=== PATIENT | male | born 1955 | race Caucasian/White ===

== ENCOUNTER → 2017-01-04 | Outpatient (CLI) | payer OTHER ==
[~2017-01-04] MED LIST: AMLO5TAB22 PO; ASPI325T PO; ATOR10TA PO; ATOR10TA15 PO; CLAR10TA13 PO; CLAR2.5T PO; DICL1CAP4 PO; LOSA50TA PO; OMEP20TA PO; OMEP20TA39 PO; [UNRECOGNIZED DRUG - OTHER] IM
== END ==
LOC: CLAB 09:07
PROVIDERS: ATTEND Specialist
DX: B18.2 Chronic viral hepatitis C (principal)
CPT/HCPCS: 36415; 82140

== ENCOUNTER 2017-01-22 09:49 | Day surgery (SDC) | payer OTHER ==
[~2017-01-22] VITALS: Ht 190.5 cm; Wt 140.9 kg
[~2017-01-22 09:49] MED LIST changes: -[UNRECOGNIZED DRUG - OTHER] IM
[2017-01-22 10:16] VITALS: BP 198/87; PULSE 85; RESP 20; TEMP 98.1; O2SAT 98
[2017-01-22] MEDS ORDERED: ATOR10TA15 PO (10:17)
[2017-01-22] MEDS ORDERED: LOSA50TA PO (10:17)
[2017-01-22] MEDS ORDERED: ASPI325T PO (10:17)
[2017-01-22] MEDS ORDERED: SODIUM CHLOR 0.9% 1000 ML IV SCH (10:30)
[2017-01-22 10:56] LABS: AUTOMATED NEUTROPHIL # 7.9 TH/MM3 (1.8-7.7); BASOPHIL % 0.3 % (0.0-2.0); EOSINOPHIL # 0.3 TH/MM3 (0-0.4); EOSINOPHIL % 2.8 % (0.0-4.0); HEMATOCRIT 38.7 % (39.0-51.0); HEMO FLAGS AUTO DIFF; LYMPH % 14.2 % (9.0-44.0); LYMPHOCYTE # 1.5 TH/MM3 (1.0-4.8); MEAN CELL VOLUME 64.4 FL (80.0-100.0); MEAN CORPUSCULAR HEMOGLOBIN 19.6 PG (27.0-34.0); MEAN CORPUSCULAR HGB CONC 30.4 % (32.0-36.0); MONO % 7.3 % (0.0-8.0); NEUT % 75.4 % (16.0-70.0); PLATELET COUNT 268 TH/MM3 (150-450); RED CELL DISTRIBUTION WIDTH 19.7 % (11.6-17.2); WHITE BLOOD COUNT 10.5 TH/MM3 (4.0-11.0)
[2017-01-22 11:01] LABS: APTT (PATIENT) 29.1 SEC (24.3-30.1)
[2017-01-22] MEDS ORDERED: LIDOCAINE 1%/EPINEPHrine 1:100,000 SOLN 20 ML VIAL ONE (11:29)
[2017-01-22 11:31] LABS: SCAN/DIFF AUTO DIFF CONFIRMED
[2017-01-22] MEDS ORDERED: MIDAZOLAM HCL 5 MG/5 ML VIAL ONE (11:31)
[2017-01-22] MEDS ORDERED: fentaNYL CITRATE 250 MCG/5 ML AMP ONE (11:31)
--- NOTE | 2017-01-22 13:53 | RADRPT ---
EXAM DATE/TIME: 01/22/2017 11:43 [facility] COMPARISON: CT ABDOMEN W/O CONTRAST, March 25, 2016, 10:18. INDICATIONS : Liver mass. ORAL CONTRAST: No oral contrast ingested. RADIATION DOSE: 32.25 CTDIvol (mGy) MEDICAL HISTORY : Hepatitis C. Cirrhosis. Hypertension.Liver mass. SURGICAL HISTORY : None. ENCOUNTER: Initial ACUITY: 1 day PAIN SCALE: 0/10 LOCATION: Right upper quadrant TECHNIQUE: Volumetric scanning of the abdomen was performed. Using automated exposure control and adjustment of the mA and/or kV according to patient size, radiation dose was kept as low as reasonably achievable to obtain optimal diagnostic quality images. FINDINGS: Attempt was made to reimage the mass in the dome of the prior to biopsy.. I was unsuccessful at this . The liver is small and shrunken. The spleen pancreas, adrenals and kidneys unremarkable. CONCLUSION: Discussed with the patient at length with Mr. Laureano. We will reschedule exam using the [employer] stereotactic localization equipment. He understands asked to proceed. Tha Nina MD FACR on January 22, 2017 at 13:40 Board Certified Radiologist. This report was verified electronically.
--- NOTE | 2017-01-22 15:50 | RADRPT ---
EXAM DATE/TIME: 01/22/2017 00:00 CONCLUSION: Discussed at length with Mr. Jin Laureano using the [employer] stereotactic guidance system for biopsy of the mass in his liver. He is amenable to that. We are going to reschedule him in the next couple of weeks when Dr. Roberson and I can both be in attendance. Thank you for this consultation. Tha Nina MD FACR on January 22, 2017 at 15:43 Board Certified Radiologist. This report was verified electronically.
== END 2017-01-22 12:10 | disposition home or self-care (01) ==
LOC: HRAD 09:49 → HRIP 09:52 → HRAD 12:10
PROVIDERS: ATTEND Specialist
DX: R16.0 Hepatomegaly, not elsewhere classified (principal); B19.20 Unspecified viral hepatitis C without hepatic coma; I10 Essential (primary) hypertension
CPT/HCPCS: 74150; 85025; 85610; 85730; G0463; J2250; J3010; J7030; 99211

== ENCOUNTER 2017-02-10 07:51 | Day surgery (SDC) | payer OTHER ==
[~2017-02-10] VITALS: Ht 190.5 cm; Wt 146.0 kg
[~2017-02-10 07:51] MED LIST changes: -AMLO5TAB22 PO; -ATOR10TA PO; -CLAR10TA13 PO; -OMEP20TA39 PO
[2017-02-10 08:17] VITALS: BP 170/116; PULSE 83; RESP 20; TEMP 97.6; O2SAT 96
[2017-02-10] MEDS ORDERED: SODIUM CHLOR 0.9% 1000 ML IV SCH (08:30)
[2017-02-10] MEDS ORDERED: [UNRECOGNIZED DRUG - OTHER] IM (08:41)
[2017-02-10] MEDS ORDERED: LACTATED RINGER'S 1000 ML IV PRN (08:45)
[2017-02-10] MEDS ORDERED: SODIUM CHLORID 0.9% 500 ML IV PRN (08:45)
[2017-02-10] MEDS ORDERED: CHLORHEXIDINE GLUCONATE 2 % 1 PACK (2 CLOTHS) TOPICAL PRN (08:45)
[2017-02-10] MEDS ORDERED: METOPROLOL TARTRATE 25 MG TAB PO PRN (08:45)
[2017-02-10] MEDS ORDERED: POVIDONE IODINE 5% (ANTISEPSIS KIT) 4 APPLICATIONS EACH NARE PRN (08:45)
[2017-02-10] MEDS ORDERED: INSULIN HUMAN REGULAR 1,000 UNITS/10 ML VIAL SQ PRN (08:45)
[2017-02-10 08:59] LABS: AUTOMATED NEUTROPHIL # 7.9 TH/MM3 (1.8-7.7); BASOPHIL % 0.4 % (0.0-2.0); EOSINOPHIL # 0.3 TH/MM3 (0-0.4); EOSINOPHIL % 2.6 % (0.0-4.0); HEMATOCRIT 39.7 % (39.0-51.0); LYMPH % 14.7 % (9.0-44.0); LYMPHOCYTE # 1.6 TH/MM3 (1.0-4.8); MEAN CELL VOLUME 64.7 FL (80.0-100.0); MONO % 7.7 % (0.0-8.0); NEUT % 74.6 % (16.0-70.0); PLATELET COUNT 276 TH/MM3 (150-450); RED BLOOD COUNT 6.14 MIL/MM3 (4.50-5.90); RED CELL DISTRIBUTION WIDTH 21.2 % (11.6-17.2); WHITE BLOOD COUNT 10.6 TH/MM3 (4.0-11.0)
[2017-02-10 09:04] LABS: HEMO FLAGS AUTO DIFF
[2017-02-10 09:09] LABS: PROTHROMBIN TIME - PATIENT 11.2 SEC (9.8-11.6)
[2017-02-10 09:15] LABS: APTT (PATIENT) 29.9 SEC (24.3-30.1)
[2017-02-10 09:40] LABS: ACANTHOCYTES OCC (NORMAL); SCAN/DIFF AUTO DIFF CONFIRMED
[2017-02-10] MEDS ORDERED: LIDOCAINE 1%/EPINEPHrine 1:100,000 SOLN 20 ML VIAL ONE (12:28)
[2017-02-10] MEDS ORDERED: ONDANSETRON HCL 4 MG/2 ML VIAL IV PUSH ONE (12:48)
[2017-02-10] MEDS ORDERED: NEOSTIGMINE 3 MG/3 ML SYR IV ONE (12:48)
[2017-02-10] MEDS ORDERED: PROPOFOL 200 MG/20 ML AMP IV ONE (12:48)
[2017-02-10] MEDS ORDERED: THROMBIN (TOPICAL) 5,000 UNIT VIAL ONE (13:42)
[2017-02-10] MEDS ORDERED: *RESP: ALBUTEROL 2.5 MG/3 ML NEB (PRN) PERIprocedural Use ONLY NEB ONE (14:49)
[2017-02-10] MEDS ORDERED: DO NOT ADM ANY ANTICOAGULANT DRUGS PRN (14:51)
[2017-02-10] MEDS ORDERED: SUGAMMADEX SODIUM 200 MG/2 ML VIAL IV PUSH ONE ×2 (14:54)
[2017-02-10] MEDS ORDERED: DEXAMETHASONE SOD PHOS 4 MG/ML VIAL ONE (14:55)
[2017-02-10] MEDS ORDERED: RESP: RACEPINEPHRINE 2.25% 0.5 ML NEB ONE (15:03)
[2017-02-10] MEDS ORDERED: fentaNYL CITRATE 250 MCG/5 ML AMP ONE (15:34)
[2017-02-10] MEDS ORDERED: RESP: RACEPINEPHRINE 2.25% 0.5 ML NEB NEB ONE (15:45)
[2017-02-10] MEDS ORDERED: DEXAMETHASONE SOD PHOS 4 MG/ML VIAL IV ONE (15:45)
[2017-02-10 15:50] VITALS: BP 158/88; PULSE 79; RESP 18; TEMP 97.5; O2SAT 98
[2017-02-10 16:05] VITALS: BP 165/89; PULSE 74; RESP 18; O2SAT 99
--- NOTE | 2017-02-10 16:28 | RADRPT ---
EXAM DATE/TIME: 02/10/2017 13:36 [facility] COMPARISON: No previous studies available for comparison. INDICATIONS : Liver mass BIOPSY SITE: Right liver Anesthesia and pain control was provided by the Anesthesia department. DEVICE(S): 1.) 20 gauge Temno core biopsy needle x 3 MEDICAL HISTORY : Hypertension. Chronic obstructive pulmonary disease. Hepatitis C. SURGICAL HISTORY : None. ENCOUNTER: Initial ACUITY: 1 day PAIN SCORE: 0/10 LOCATION: Right liver A total of three core specimen(s) were obtained and sent to the laboratory for pathologic evaluation. PROCEDURE: 1. CT guided liver biopsy. Prior to the procedure informed consent was obtained. Any appropriate prior imaging studies were rev iewed. Using automated exposure control and adjustment of the mA and/or kV according to patient size, radiat ion dose was kept as low as reasonably achievable to obtain optimal diagnostic quality images. The site was prepped in a sterile fashion. Full sterile technique was used, including cap, mask, rebecca rile gloves and gown and a large sterile sheet. Hand hygiene and 2% chlorhexidine and/or betadine/al cohol prep was utilized per protocol for cutaneous antisepsis. The skin and subcutaneous tissues wer e infiltrated with local anesthetic solution. With CT and Veran guidance, the previously identified target was localized. Of note, a post-contraste d scan was necessary as the lesion is only identified on the early arterial phase. Biopsy was perfo rmed using the prescribed needle as above. Adequate hemostasis was obtained with Gelfoam and thrombi n slurry through the guide needle and compression at the puncture site. Follow-up CT scan reveals no hemorrhage. The patient tolerated the procedure well and there were no complications. The patient was returned to the Radiology Outpatient Unit in stable condition. CONCLUSION: Uncomplicated CT guided biopsy. Morgan Roberson MD on February 10, 2017 at 16:22 Board Certified Radiologist. This report was verified electronically.
[2017-02-10 16:35] VITALS: BP 168/87; PULSE 77; RESP 18; O2SAT 95
[2017-02-10 17:05] VITALS: BP 171/88; PULSE 69; RESP 18; O2SAT 94
[2017-02-10 17:35] VITALS: BP 166/88; PULSE 69; RESP 18; O2SAT 96
--- NOTE | 2017-02-10 19:17 | EKG ---
Date Performed: 02/10/2017 Time Performed: 08:37:06 PTAGE: 61 years EKG: Sinus rhythm POSSIBLE RIGHT VENTRICULAR CONDUCTION DELAY BORDERLINE ECG PREVIOUS TRACING : 12/15/2011 16.42 Compared to the previous tracing tachycardia no longer pres ent DOCTOR: Kayla Lu Interpretating Date/Time 02/10/2017 19:16:27
[2017-02-10] MEDS ORDERED: IOHEXOL 350 MG/ML 10 ML VIAL (for RAD DIAG) IV ONE (20:12)
== END 2017-02-10 18:40 | disposition home or self-care (01) ==
LOC: HRAD 07:51 → HRIP 07:52 → HRAD 18:40
PROVIDERS: ATTEND Specialist
DX: C22.0 Liver cell carcinoma (principal); B19.20 Unspecified viral hepatitis C without hepatic coma; I10 Essential (primary) hypertension; J44.9 Chronic obstructive pulmonary disease, unspecified; Z01.810 Encounter for preprocedural cardiovascular examination; Z01.818 Encounter for other preprocedural examination
CPT/HCPCS: 47000; 77012; 85025; 85610; 85730; 88307; 88313; 93005; J1100; J2405; J2710; J3010; J7120; J7613; Q9967

== ENCOUNTER → 2017-12-13 | Outpatient (CLI) | payer OTHER ==
[~2017-12-13] MED LIST changes: +ASPI-183 PO; -ASPI325T PO; -OMEP20TA PO; +OMEP20TA93 PO; +[UNRECOGNIZED DRUG - OTHER] IM
== END ==
LOC: CLAB 10:49
PROVIDERS: ATTEND Specialist
DX: B18.2 Chronic viral hepatitis C (principal); I10 Essential (primary) hypertension; C22.0 Liver cell carcinoma; R53.82 Chronic fatigue, unspecified; E66.9 Obesity, unspecified
CPT/HCPCS: 36415; 82140

== ENCOUNTER 2018-07-12 05:49 | Inpatient (IN) ==
[2018-07-12] MEDS ORDERED: Chlorhexidine 4% Topical 120 APPLIC/120 ML Bottle TOPICAL SCH (07:00)
[2018-07-12] MEDS ORDERED: Metoprolol Tartrate 25 MG Tablet PO ONE (07:00)
[2018-07-12] MEDS ORDERED: Sodium Chlor 0.9% Inj 500 ML IV.CONT ONE (07:00)
[2018-07-12] MEDS ORDERED: Chlorhexidine Gluconate 2% 1 Pack (2 Cloths) TOPICAL ONE (07:00)
[2018-07-12] MEDS ORDERED: Neostigmine Inj 5 MG/5 ML Syringe IV.PUSH ONE (08:46)
[2018-07-12] MEDS ORDERED: Glycopyrrolate Inj 1 MG/5 ML Syringe IV.PUSH ONE (08:46)
[2018-07-12] MEDS ORDERED: Lidocaine PF 1% Inj 5 ML Syringe OTHER ONE (08:46)
[2018-07-12] MEDS ORDERED: Bupivacaine/Epinephrine Inj 0.25% 50 ML Vial ONE (11:20)
[2018-07-12] MEDS ORDERED: Post-op Orders (for Pharmacy) OTHER STA (11:45)
[2018-07-12] MEDS ORDERED: Morphine Inj 4 MG/ML Vial IV.PUSH PRN (11:45)
--- NOTE | 2018-07-12 11:57 | P.OP ---
Date of procedure: 07/12/18 Procedure: Removal of deep hardware, open treatment of right femur nonunion with intramedullary nail, iliac crest bone graft with Infuse Anesthesia: GETA Surgeon: Rene Manrique MD Operation and Findings: Implants used: Sampson 13 mm x 380 mm femoral nail Plan of activity: TTWB Details of procedure: Patient was seen and evaluated preoperatively. The patient has significant leg pain from right femur fracture nonunion. The risk and benefits of surgery were discussed in depth with the patient to include bleeding, infection, nonunion, malunion, need for hip replacement, painful hardware, as well as medical competitions including blood clots, stroke, heart attack, and . Informed consent was obtained. Operative site was marked. Patient was brought to the operating room and placed on Kuldeep table. IV sedation was administered by anesthesiologist. Timeout procedure was performed. Hip and leg were prepped with alcohol followed by Hibiclens and draped in the usual sterile fashion. Antibiotics were held until after cultures were obtained from the fracture site. Procedure began with removal of deep hardware. A 2 inch incision was made over the proximal femur. Subcu tissue was dissected with Bovie. The quadriceps muscle was split in line with fibers. The proximal interlocking screws were identified. One screw was broken and one screw was intact. The proximal screw was removed. A portion of the broken screw was removed. Additional broken screws were partially removed from the distal femur. Incisions were made along the lateral distal femur. The heads of 3 screws were removed. A third incision was made over the anterior knee. A medial arthrotomy was created. The femoral nail was identified. Using an insertion handle that screwed into the nail, the nail was now removed by backslapping it. Fluoroscopy confirmed removal of appropriate hardware. There were multiple broken screws which could not be removed. Next attention was turned towards debridement of the nonunion. A 4 inch incision was made over the lateral aspect of the femur. Iliotibial band was split in line with fibers. Vastus lateralis was elevated anteriorly. The fracture site was visualized. There was clear gross motion at the fracture site. A TPS bur was used to debride the bone back to healthy bleeding bone. Significant fibrous tissue was also removed from the fracture site. A ball- tipped wire was placed and intramedullary canal. The canal was sequentially reamed up to size 14. The nail length was now measured. A Sampson 380 mm x 13 mm nail was opened. The nail was passed over the guidepin. The fracture was held in a reduced position. The nail was fully seated. Using the insertion handle as a guide the distal interlocking screw holes were predrilled and screw lengths were measured. 3 Appropriate length screws was now placed. The nail was now impacted to help compress the fracture. Next, using perfect [place] technique two proximal interlocking screws were placed. Screw holes were predrilled and screw lengths were measured. Final fluoroscopy revealed well aligned fracture with well-placed hardware. At this point attention was turned iliac crest bone grafting. A 3 cm incision was made over the iliac crest. Subcutaneous tissue dissected with Bovie. Osteotomes were used to create a window in the iliac crest. Bone graft was now harvested from the iliac crest using curettes. After completion of harvesting of the bone graft fascia was closed with #1 Vicryl. Subcutaneous tissues closed with 3-0 Vicryl. Skin was closed with agbriel. The incision area was infiltrated with quarter percent Marcaine with epinephrine. At this point a large Infuse graft was opened. The Infuse was mixed appropriately and allowed to set. This was mixed with iliac crest bone graft. This bone graft with Infuse was now packed in the fracture nonunion site. The defect was completely filled. Fascia and iliotibial band closed with #1 Vicryl, . Subcutaneous tissues closed with 3-0 Vicryl and skin was closed with gabriel. Sterile dressings were applied. The patient was transferred to recovery in stable condition.
[2018-07-12] MEDS ORDERED: Vancomycin Inj 1 GM/200 ML PIGGYBACK IV.SIG SCH (12:00)
[2018-07-12] MEDS ORDERED: Pantoprazole Sodium 20 MG DR Tablet PO PRN (12:15)
[2018-07-12] MEDS ORDERED: fentaNYL Citrate Inj 100 MCG/2 ML Ampul ONE (12:38)
--- NOTE | 2018-07-12 12:38 | P.PNOP ---
Subjective Interval history: POD 0 s/p ROBBY with revision IMN and ICBG right femur stable in pacu Physical Exam Vital signs: Intake & Output 07/11/18 07/12/18 07/12/18 18:59 06:59 18:59 Weight 133.7 kg 133.7 kg Other: Weight On Admission 133.7 kg Narrative: RLE: dressings clean and dry. intact LLE: dressing clean and dry. intact Assessment and Plan - Assessment and Plan 1) Right Distal Femur Fx with nonunion s/p ROBBY and revision IMN with ICBC - POd 0 -TTWB -daily dressing changes to right leg and left hip wtih xerforom/4x4/mariann. ok for primapore if minimal drainage -CM for DC planning. home with C vs SNF -DVT prophylaxis -scripts on chart -f/u with Igor or FELY in 2 weeks E-[facility] Prescription Drug Monitoring Database has been queried and verified prior to prescribing the controlled substance. Acute pain exception. This patient has normal, predicted, physiological, and time limited response to an adverse mechanical stimulus associated with surgery, trauma, or acute illness as described in my notes. There is a lack of alternative treatment options other than to include the prescribed narcotic treatment for this condition.
[2018-07-12] MEDS ORDERED: *morphine SULFATE 4 MG/ML PERIprocedure ONLY ONE (13:11)
--- NOTE | 2018-07-12 15:06 | ECG ---
Date Performed: 07/12/2018 Time Performed: 06:50:31 PTAGE: 62 years EKG: Sinus rhythm WITH OCCASIONAL VENTRICULAR PREMATURE COMPLEXES RIGHT BUNDLE BRANCH BLOCK ABNORMAL ECG PREVIOUS TRACING : 02/10/2017 08.37 Since the previous tracing, no significant change noted DOCTOR: Zi Coleman Interpretating Date/Time 07/12/2018 15:04:24
[2018-07-12] MEDS: Calcium/Vitamin D 250/125 MG Tablet PO SCH (17:46)
[2018-07-12] MEDS: ceFAZolin 2 GM Premix Inj 2 GM/50 ML PIGGYBACK IV.SIG SCH (17:46)
[2018-07-13] MEDS ORDERED: Enoxaparin Inj 40 MG/0.4 ML Syringe SQ SCH
[2018-07-13] MEDS: ceFAZolin 2 GM Premix Inj 2 GM/50 ML PIGGYBACK IV.SIG SCH ×3 (03:14→17:37)
--- NOTE | 2018-07-13 06:36 | P.PNOP ---
Subjective Interval history: POD 1 s/p revision IMN with ICBG right distal femur doign well. pain controlled. states that increased swelling over left hip incision Physical Exam Vital signs: Vital Signs 07/12/18 12:30 07/12/18 12:32 07/12/18 13:00 Temperature 97.2 F L Pulse Rate 76 66 Respiratory Rate 18 14 Blood Pressure 133/65 136/65 Pulse Oximetry 96 96 97 07/12/18 13:15 07/12/18 13:30 07/12/18 13:31 Temperature Pulse Rate 63 70 Respiratory Rate 16 16 Blood Pressure 147/71 H 164/69 H Pulse Oximetry 96 96 100 07/12/18 13:45 07/12/18 15:00 07/12/18 19:25 Temperature 97.5 F L 98.4 F Pulse Rate 78 61 94 H Respiratory Rate 17 17 19 Blood Pressure 160/68 H 163/81 H 160/77 H Pulse Oximetry 96 100 99 07/13/18 00:30 07/13/18 04:18 Temperature 98.2 F 97.8 F Pulse Rate 100 H 102 H Respiratory Rate 19 18 Blood Pressure 137/77 138/81 Pulse Oximetry 98 97 Intake & Output 07/12/18 07/12/18 07/13/18 06:59 18:59 06:59 Intake Total 750 / 750 Output Total 625 / 625 Balance 125 / 125 Weight 133.7 kg 133.356 kg Intake: IV 50 / 50 Ancef 2 GM Premix Inj 2 gm In 50 / 50 50 ml @ 100 mls/hr IV.SIG Q8H [place] Rx#:[id number] Anesthesia Amount 700 / 700 Output: Urine 325 / 325 Estimated Blood Loss 300 / 300 Other: # Voids 1 Weight On Admission 133.7 kg Narrative: RLE: dressings clean and dry. proximal dressing reinforced. NVI Left hip: incision clean. significant swelling and hematoma present. no drainage Results - Labs CBC & Chem 7: 07/13/18 05:00 Assessment and Plan - Assessment and Plan 1) Right Distal Femur Fx with nonunion s/p ROBBY and revision IMN with ICBC - POd 1 -TTWB -daily dressing changes to right leg and left hip wtih xerforom/4x4/mariann. ok for prim[place] if minimal drainage. -Ice left hip for hematoma. will take time to resolve -CM for DC planning. home with HHC vs SNF -DVT prophylaxis -scripts on chart -f/u with Igor or FELY in 2 weeks E-[facility] Prescription Drug Monitoring Database has been queried and verified prior to prescribing the controlled substance. Acute pain exception. This patient has normal, predicted, physiological, and time limited response to an adverse mechanical stimulus associated with surgery, trauma, or acute illness as described in my notes. There is a lack of alternative treatment options other than to include the prescribed narcotic treatment for this condition.
[2018-07-13 07:37] LABS: Hematocrit 35.1 % (39.0-51.0); Hemoglobin 11.8 gm/dL (13.0-17.0)
[2018-07-13] MEDS: Calcium/Vitamin D 250/125 MG Tablet PO SCH ×4 (08:12→17:36)
[2018-07-13] MEDS: hydroCHLOROthiazide 25 MG Tablet PO SCH (08:12)
[2018-07-13] MEDS: Loratadine 10 MG Tablet PO SCH (08:12)
[2018-07-13] MEDS: Vancomycin Inj 1,000 MG in Sodium Chlor 0.9% Inj 250 ML IV.SIG SCH ×3 (08:57→22:38)
[2018-07-13] MEDS: Enoxaparin Inj 40 MG/0.4 ML Syringe SQ SCH (11:58)
--- NOTE | 2018-07-13 15:02 | XR ---
EXAM DATE: 07/13/2018 12:00 AM EDT AGE/SEX: 62 years / Male INDICATIONS: ORIF Right femur. CLINICAL DATA: This is the patient's initial encounter. Patient reports that signs and symptoms have been present for 1 day and indicates a pain score of Nonresponsive. MEDICAL/SURGICAL HISTORY: Non-responsive. Non-responsive. COMPARISON: [facility] – [place]EM[place] (AP & LAT/2VWS), 08/09/2012. . CONCLUSION: Fluoroscopic images are obtained. There is an intramedullary lang along the femur fixating old fractur e. Old screws are present. Electronically signed by: Malik Munguia MD 07/13/2018 3:00 PM EDT
[2018-07-14] MEDS: ceFAZolin 2 GM Premix Inj 2 GM/50 ML PIGGYBACK IV.SIG SCH ×2 (02:47→10:14)
--- NOTE | 2018-07-14 06:42 | P.PNOP ---
Subjective Interval history: States that yesterday he had difficulty getting around in the room. Stated when he stood up he had significant lightheadedness and had to sit down Physical Exam Vital signs: Vital Signs 07/13/18 08:00 07/13/18 08:13 07/13/18 08:43 Temperature 98.3 F Pulse Rate 123 H Respiratory Rate 17 18 18 Blood Pressure 152/91 H Pulse Oximetry 100 07/13/18 12:00 07/13/18 16:00 07/13/18 18:53 Temperature 97.6 F 98.5 F 98.3 F Pulse Rate 112 H 87 85 Respiratory Rate 17 17 17 Blood Pressure 160/78 H 131/65 134/63 Pulse Oximetry 99 100 100 07/13/18 19:38 07/13/18 22:45 07/13/18 22:51 Temperature 97.6 F Pulse Rate 100 H Respiratory Rate 18 18 16 Blood Pressure 120/65 Pulse Oximetry 99 07/13/18 23:58 07/14/18 04:00 Temperature 97.3 F L Pulse Rate 98 H Respiratory Rate 18 16 Blood Pressure 127/59 L Pulse Oximetry 100 Intake & Output 07/13/18 07/13/18 07/14/18 06:59 18:59 06:59 Intake Total 530 / 530 2500 / 2500 300 / 300 Output Total 750 / 750 400 / 400 1000 / 1000 Balance -220 / -220 2100 / 2100 -700 / -700 Weight 133.3 kg Intake: IV 50 / 50 1600 / 1600 300 / 300 LR 1000 mL Inj 1,000 ML @ 30 1000 / 1000 mls/hr IV.CONT .Q24H [place] Rx#: [id number] Vancomycin Inj 1,000 MG In NS 500 / 500 250 / 250 Inj 250 ML @ 250 mls/hr IV.SIG Q12H [place] Rx#:[id number] Ancef 2 GM Premix Inj 2 gm In 50 / 50 100 / 100 50 / 50 50 ml @ 100 mls/hr IV.SIG Q8H [place] Rx#:[id number] Oral 480 / 480 900 / 900 Output: Urine 750 / 750 400 / 400 1000 / 1000 Other: Date of Last Bowel Movement 07/11/18 07/11/18 # Bowel Movements 0 0 Narrative: Right lower extremity: Clean dry dressings intact. Intact sensation distally with active dorsiflexion plantar flexion foot. No significant calf tenderness Results - Labs CBC & Chem 7: 07/13/18 05:00 Laboratory Results - last 24 hr 07/13/18 05:00 Hgb 11.8 L Hct 35.1 L Microbiology 07/12/18 10:35 Wound - Other Acid Fast Bacilli Smear - Final No acid fast bacilli seen 07/12/18 10:35 Tissue - Other Gram Stain - Final 07/12/18 10:35 Tissue - Other Wound Culture - Preliminary No growth in 24 hours 07/12/18 10:35 Wound - Other Gram Stain - Final 07/12/18 10:35 Wound - Other Wound Culture - Preliminary No growth in 24 hours 07/12/18 10:35 Tissue - Other Fungal Smear - Final No fungal elements seen 07/12/18 10:35 Wound - Other Fungal Smear - Final No fungal elements seen - Imaging Impressions Femur X-Ray 07/12/18 00:00 CONCLUSION: Fluoroscopic images are obtained. There is an intramedullary lang along the femur fixating old fracture. Old screws are present. 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 ok for prim[place] if minimal drainage. -Ice left hip for hematoma. will take time to resolve -CM for DC planning to SNF -DVT prophylaxis CBC and BMP ordered this morning Dr. Costa recommends consulting Dr. Alejandre for blood pressure and lightheadedness Once cleared by medical and bed placement is arranged we will plan on discharge to rehab -scripts on chart -f/u with Igor or FELY in 2 weeks E-FORE Prescription Drug Monitoring Database has been queried and verified prior to prescribing the controlled substance. Acute pain exception. This patient has normal, predicted, physiological, and time limited response to an adverse mechanical stimulus associated with surgery, trauma, or acute illness as described in my notes. There is a lack of alternative treatment options other than to include the prescribed narcotic treatment for this condition.
[2018-07-14] MEDS: hydroCHLOROthiazide 25 MG Tablet PO SCH (08:19)
[2018-07-14] MEDS: Calcium/Vitamin D 250/125 MG Tablet PO SCH ×3 (08:20→18:06)
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
[2018-07-14] MEDS: Loratadine 10 MG Tablet PO SCH (10:14)
[2018-07-14 10:17] LABS: Calcium 8.7 mg/dL (8.5-10.1)
[2018-07-14 10:21] LABS: Potassium 2.9 meq/L (3.5-5.1)
[2018-07-14 10:53] LABS: Hematocrit 28.9 % (39.0-51.0); Hemoglobin 9.6 gm/dL (13.0-17.0); Mean Corpuscular HGB Conc 33.3 % (32.0-36.0); Mean Corpuscular Hemoglobin 30.8 pg (27.0-34.0); Mean Corpuscular Volume 92.4 fL (80.0-100.0); Mean Platelet Volume 8.3 fL (7.0-11.0); Platelet Count 231 th/mm3 (150-450); Red Blood Count 3.12 mil/mm3 (4.50-5.90); Red Cell Distribution Width 13.2 % (11.6-17.2); White Blood Count 16.1 th/mm3 (4.0-11.0)
[2018-07-14] MEDS ORDERED: Influenza (Quadrivalent) Vaccine 0.5 ML Syringe IM ONE (11:30)
[2018-07-14] MEDS: Vancomycin Inj 1,000 MG in Sodium Chlor 0.9% Inj 250 ML IV.SIG SCH (11:32)
[2018-07-14] MEDS: Enoxaparin Inj 40 MG/0.4 ML Syringe SQ SCH (11:34)
--- NOTE | 2018-07-14 12:33 | ECG ---
Date Performed: 07/14/2018 Time Performed: 10:27:42 PTAGE: 62 years EKG: SINUS TACHYCARDIA WITH OCCASIONAL VENTRICULAR PREMATURE COMPLEXES INCOMPLETE RIGHT BUNDLE B RANCH BLOCK ST DEPRESSION, CONSIDER INFERIOR AND LATERAL ISCHEMIA ABNORMAL RHYTHM ECG PREVIOUS TRACING : 07/12/2018 06.50 Compared to previous tracing, heart rate has increased, inf erior and lateral ST depression is now evident. DOCTOR: Jayro Patino Interpretating Date/Time 07/14/2018 12:31:48
[2018-07-14] MEDS: KCL 20 mEq/NACL 0.45% Inj 1,000 ML IV.CONT SCH ×2 (12:39→21:39)
[2018-07-15 06:27] LABS: Baso # (Auto) 0.1 th/mm3 (0.0-0.2); Baso % (Auto) 0.5 % (0.0-2.0); Eos # (Auto) 0.3 th/mm3 (0.0-0.4); Eos % (Auto) 2.3 % (0.0-4.0); Hematocrit 25.1 % (39.0-51.0); Hemoglobin 8.4 gm/dL (13.0-17.0); Lymph # (Auto) 1.3 th/mm3 (1.0-4.8); Lymph % (Auto) 9.9 % (9.0-44.0); Mean Corpuscular HGB Conc 33.4 % (32.0-36.0); Mean Corpuscular Hemoglobin 30.6 pg (27.0-34.0); Mean Corpuscular Volume 91.6 fL (80.0-100.0); Mean Platelet Volume 8.1 fL (7.0-11.0); Mono # (Auto) 1.6 th/mm3 (0.0-0.9); Mono % (Auto) 11.9 % (0.0-8.0); Neut # (Auto) 10.1 th/mm3 (1.8-7.7); Neut % (Auto) 75.4 % (16.0-70.0); Platelet Count 191 th/mm3 (150-450); Red Blood Count 2.74 mil/mm3 (4.50-5.90); Red Cell Distribution Width 13.2 % (11.6-17.2); White Blood Count 13.4 th/mm3 (4.0-11.0)
[2018-07-15 06:56] LABS: Anion Gap 1 meq/L (5-15); Blood Urea Nitrogen 14 mg/dL (7-18); Calcium 7.9 mg/dL (8.5-10.1); Carbon Dioxide 30.8 meq/L (21.0-32.0); Chloride 101 meq/L (98-107); Glomerular Filtration Rate Greater Than 89 mL/min (>89); Glucose,Random 92 mg/dL (74-106); Potassium 3.5 meq/L (3.5-5.1); Sodium 133 meq/L (136-145)
--- NOTE | 2018-07-15 07:09 | P.PNOP ---
Subjective Interval history: Continuing to do well with the right lower extremity. States that he continues to have lightheadedness and orthostatic hypotension Physical Exam Vital signs: Vital Signs 07/14/18 08:00 07/14/18 08:20 07/14/18 08:50 Temperature 97.8 F Pulse Rate 120 H Respiratory Rate 24 18 18 Blood Pressure 121/66 Pulse Oximetry 99 07/14/18 12:00 07/14/18 12:01 07/14/18 14:49 Temperature 98.6 F Pulse Rate 103 H Respiratory Rate 23 18 Blood Pressure 108/63 108/67 Pulse Oximetry 96 07/14/18 15:19 07/14/18 16:00 07/14/18 16:02 Temperature 98.6 F Pulse Rate 124 H Respiratory Rate 18 23 Blood Pressure 141/67 H 135/67 Pulse Oximetry 96 07/14/18 20:00 07/14/18 21:36 07/15/18 00:00 Temperature 98.7 F 98.8 F Pulse Rate 94 H 97 H Respiratory Rate 17 18 17 Blood Pressure 115/56 L 97/55 L Pulse Oximetry 100 99 07/15/18 04:00 07/15/18 05:52 07/15/18 05:53 Temperature 98.7 F Pulse Rate 101 H 104 H Respiratory Rate 18 18 Blood Pressure 114/57 L 132/61 Pulse Oximetry 99 Intake & Output 07/14/18 07/15/18 07/15/18 18:59 06:59 18:59 Intake Total 1260 / 1260 1000 / 1000 Output Total 960 / 960 1225 / 1225 Balance 300 / 300 -225 / -225 Weight 133 kg Intake: IV 300 / 300 1000 / 1000 Potassium Chlor 20 mEq/NACL 0. 1000 / 1000 45% Inj 1,000 ML @ 100 mls/hr IV.CONT .Q10H [place] Rx#:[id number] Vancomycin Inj 1,000 MG In NS 250 / 250 Inj 250 ML @ 250 mls/hr IV.SIG Q12H [place] Rx#:[id number] Ancef 2 GM Premix Inj 2 gm In 50 / 50 50 ml @ 100 mls/hr IV.SIG Q8H [place] Rx#:[id number] Oral 960 / 960 Output: Urine 960 / 960 1225 / 1225 Other: Date of Last Bowel Movement 07/12/18 # Bowel Movements 0 Narrative: Right lower extremity: Clean dry dressings intact. Active dorsiflexion plantar flexion of foot. Intact distal pulses and good capillary refills. Results - Labs CBC & Chem 7: 07/15/18 05:11 07/15/18 05:11 Laboratory Results - last 24 hr 07/14/18 07/14/18 07/14/18 09:29 09:29 09:29 WBC 16.1 H RBC 3.12 L Hgb 9.6 L D Hct 28.9 L MCV 92.4 MCH 30.8 MCHC 33.3 RDW 13.2 Plt Count 231 MPV 8.3 Neut % (Auto) Lymph % (Auto) [place] % (Auto) Eos % (Auto) Baso % (Auto) Neut # (Auto) Lymph # (Auto) [place] # (Auto) Eos # (Auto) Baso # (Auto) WBC Differential Differential Comment Sodium 135 L Potassium 2.9 L* Chloride 96 L Carbon Dioxide 29.0 Anion Gap 10 BUN 17 Creatinine 1.02 Estimated GFR 74 L Random Glucose 147 H Calcium 8.7 Magnesium 2.0 07/14/18 07/14/18 07/15/18 13:35 13:35 05:11 WBC 13.4 H RBC 2.74 L Hgb 9.3 L 8.4 L Hct 27.7 L 25.1 L MCV 91.6 MCH 30.6 MCHC 33.4 RDW 13.2 Plt Count 191 MPV 8.1 Neut % (Auto) 75.4 H Lymph % (Auto) 9.9 [place] % (Auto) 11.9 H Eos % (Auto) 2.3 Baso % (Auto) 0.5 Neut # (Auto) 10.1 H Lymph # (Auto) 1.3 [place] # (Auto) 1.6 H Eos # (Auto) 0.3 Baso # (Auto) 0.1 WBC Differential . Differential Comment Auto diff final Sodium Potassium Chloride Carbon Dioxide Anion Gap BUN Creatinine Estimated GFR Random Glucose Calcium Magnesium 07/15/18 05:11 WBC RBC Hgb Hct MCV MCH MCHC RDW Plt Count MPV Neut % (Auto) Lymph % (Auto) [place] % (Auto) Eos % (Auto) Baso % (Auto) Neut # (Auto) Lymph # (Auto) [place] # (Auto) Eos # (Auto) Baso # (Auto) WBC Differential Differential Comment Sodium 133 L Potassium 3.5 Chloride 101 Carbon Dioxide 30.8 Anion Gap 1 L BUN 14 Creatinine 0.84 Estimated GFR Greater than 89 Random Glucose 92 Calcium 7.9 L D Magnesium Microbiology 07/12/18 10:35 Tissue - Other Acid Fast Bacilli Smear - Final No acid fast bacilli seen 07/12/18 10:35 Tissue - Other Gram Stain - Final 07/12/18 10:35 Tissue - Other Wound Culture - Preliminary No growth in 48 hours 07/12/18 10:35 Wound - Other Gram Stain - Final 07/12/18 10:35 Wound - Other Wound Culture - Preliminary No growth in 48 hours Assessment and Plan - Assessment and Plan 1) Right Distal Femur Fx with nonunion s/p ROBBY and revision IMN with ICBC - POD 3 -TTWB -daily dressing changes to right leg and left hip wtih [id number]/mariann. ok for primapore if minimal drainage. -Ice left hip for hematoma. will take time to resolve -CM for DC planning to SNF -DVT prophylaxis Once cleared by medical and bed placement is arranged we will plan on discharge to rehab -scripts on chart -f/u with I[facility] or [facility] in 2 weeks [facility] Prescription Drug Monitoring Database has been queried and verified prior to prescribing the controlled substance. Acute pain exception. This patient has normal, predicted, physiological, and time limited response to an adverse mechanical stimulus associated with surgery, trauma, or acute illness as described in my notes. There is a lack of alternative treatment options other than to include the prescribed narcotic treatment for this condition.
[2018-07-15] MEDS: Calcium/Vitamin D 250/125 MG Tablet PO SCH ×3 (10:23→19:06)
[2018-07-15] MEDS: Loratadine 10 MG Tablet PO SCH (10:25)
[2018-07-15] MEDS ORDERED: Sodium Chlor 0.9% Inj 250 ML IV.SIG SCH (12:00)
[2018-07-15] MEDS: Enoxaparin Inj 40 MG/0.4 ML Syringe SQ SCH (12:00)
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
[2018-07-16 06:44] LABS: Baso # (Auto) 0.1 th/mm3 (0.0-0.2); Baso % (Auto) 0.7 % (0.0-2.0); Eos # (Auto) 0.4 th/mm3 (0.0-0.4); Eos % (Auto) 3.6 % (0.0-4.0); Hematocrit 30.9 % (39.0-51.0); Hemoglobin 10.2 gm/dL (13.0-17.0); Lymph # (Auto) 0.9 th/mm3 (1.0-4.8); Lymph % (Auto) 7.5 % (9.0-44.0); Mean Corpuscular HGB Conc 33.1 % (32.0-36.0); Mean Corpuscular Hemoglobin 29.7 pg (27.0-34.0); Mean Corpuscular Volume 89.6 fL (80.0-100.0); Mono # (Auto) 1.2 th/mm3 (0.0-0.9); Mono % (Auto) 9.5 % (0.0-8.0); Neut # (Auto) 9.8 th/mm3 (1.8-7.7); Neut % (Auto) 78.7 % (16.0-70.0); Platelet Count 213 th/mm3 (150-450); Red Blood Count 3.45 mil/mm3 (4.50-5.90); Red Cell Distribution Width 14.4 % (11.6-17.2); White Blood Count 12.4 th/mm3 (4.0-11.0)
[2018-07-16 07:08] LABS: Anion Gap 8 meq/L (5-15); Calcium 7.7 mg/dL (8.5-10.1); Carbon Dioxide 28.8 meq/L (21.0-32.0); Chloride 101 meq/L (98-107); Glomerular Filtration Rate Greater Than 89 mL/min (>89); Glucose,Random 77 mg/dL (74-106); Potassium 3.7 meq/L (3.5-5.1); Sodium 138 meq/L (136-145)
[2018-07-16 07:17] LABS: Blood Urea Nitrogen 17 mg/dL (7-18)
--- NOTE | 2018-07-16 07:26 | P.PNOP ---
Subjective Interval history: Patient resting comfortably. States his pain is well controlled at baseline Physical Exam Vital signs: Vital Signs 07/15/18 08:00 07/15/18 12:00 07/15/18 14:47 Temperature 98.2 F 98.8 F 97.9 F Pulse Rate 87 91 H 88 Respiratory Rate 18 18 18 Blood Pressure 117/56 L 116/60 126/60 Pulse Oximetry 98 96 98 07/15/18 15:09 07/15/18 16:00 07/15/18 17:54 Temperature 98.3 F 98.2 F 98.3 F Pulse Rate 84 83 81 Respiratory Rate 18 18 17 Blood Pressure 116/62 120/55 L 118/56 L Pulse Oximetry 99 98 99 07/15/18 17:55 07/15/18 18:15 07/15/18 18:17 Temperature 98.3 F 98.1 F 98.1 F Pulse Rate 81 99 H 99 H Respiratory Rate 17 16 16 Blood Pressure 118/56 L 115/56 L 115/56 L Pulse Oximetry 99 99 99 07/15/18 20:00 07/15/18 20:27 07/15/18 20:39 Temperature 99.1 F 99.1 F Pulse Rate 81 81 Respiratory Rate 20 18 18 Blood Pressure 106/58 L 106/58 L Pulse Oximetry 100 07/16/18 00:00 07/16/18 04:00 07/16/18 05:40 Temperature 97.8 F 98.3 F Pulse Rate 83 83 Respiratory Rate 20 18 18 Blood Pressure 111/56 L 107/54 L Pulse Oximetry 95 97 Intake & Output 07/15/18 07/16/18 07/16/18 18:59 06:59 18:59 Intake Total 1720 / 1720 2120 / 2120 Output Total 1750 / 1750 400 / 400 Balance -30 / -30 1720 / 1720 Weight 139.9 kg Intake: IV 1000 / 1000 NS + KCl 20 mEq Inj 1,000 ML @ 1000 / 1000 100 mls/hr IV.CONT .Q10H [facility] Rx #:[id number] Oral 1320 / 1320 720 / 720 Intake (Blood Product) Amt 400 / 400 0 / 0 Rbc As-3 Leukoreduced Unit 400 / 400 [id number] Rbc As-3 Leukoreduced Unit 0 / 0 0 / 0 [id number] Autotransfusion Amount 400 / 400 Output: Urine 1750 / 1750 400 / 400 Other: Date of Last Bowel Movement 07/12/18 07/12/18 # Bowel Movements 0 Narrative: Awake, alert, no acute distress Right lower extremity: Dressings in place without significant drainage. Negative Homans. Neurovascularly intact distally. Brisk cap refill. Results - Labs CBC & Chem 7: 07/16/18 05:12 07/16/18 05:12 Laboratory Results - last 24 hr 07/13/18 07/15/18 07/16/18 05:00 12:01 05:12 WBC 12.4 H RBC 3.45 L Hgb 10.2 L Hct 30.9 L MCV 89.6 MCH 29.7 MCHC 33.1 RDW 14.4 Plt Count 213 MPV 8.0 Neut % (Auto) 78.7 H Lymph % (Auto) 7.5 L Labette % (Auto) 9.5 H Eos % (Auto) 3.6 Baso % (Auto) 0.7 Neut # (Auto) 9.8 H Lymph # (Auto) 0.9 L [place] # (Auto) 1.2 H Eos # (Auto) 0.4 Baso # (Auto) 0.1 WBC Differential . Differential Comment Auto diff final Sodium Potassium Chloride Carbon Dioxide Anion Gap BUN Creatinine Estimated GFR Random Glucose Calcium Vit D 1,25-Dihydroxy 37 Blood Type A Positive Antibody Screen Negative MTS Gel Crossmatch See Detail 07/16/18 05:12 WBC RBC Hgb Hct MCV MCH MCHC RDW Plt Count MPV Neut % (Auto) Lymph % (Auto) Labette % (Auto) Eos % (Auto) Baso % (Auto) Neut # (Auto) Lymph # (Auto) Labette # (Auto) Eos # (Auto) Baso # (Auto) WBC Differential Differential Comment Sodium 138 Potassium 3.7 Chloride 101 Carbon Dioxide 28.8 Anion Gap 8 BUN 17 Creatinine 0.85 Estimated GFR Greater than 89 Random Glucose 77 Calcium 7.7 L Vit D 1,25-Dihydroxy Blood Type Antibody Screen MTS Gel Crossmatch Microbiology 07/12/18 10:35 Tissue - Other Gram Stain - Final 07/12/18 10:35 Tissue - Other Wound Culture - Final No growth in 72 hours (aerobically and anaerobically ) 07/12/18 10:35 Wound - Other Gram Stain - Final 07/12/18 10:35 Wound - Other Wound Culture - Final No growth in 72 hours (aerobically and anaerobically ) Assessment and Plan - Assessment and Plan 1) 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 ok for primapore if minimal drainage. -Ice left hip for hematoma. will take time to resolve -CM for DC planning to SNF -DVT prophylaxis Once cleared by medical and bed placement is arranged we will plan on discharge to rehab -scripts on chart -f/u with Igor or FELY in 2 weeks [facility] Prescription Drug Monitoring Database has been queried and verified prior to prescribing the controlled substance. Acute pain exception. This patient has normal, predicted, physiological, and time limited response to an adverse mechanical stimulus associated with surgery, trauma, or acute illness as described in my notes. There is a lack of alternative treatment options other than to include the prescribed narcotic treatment for this condition.
[2018-07-16] MEDS: Loratadine 10 MG Tablet PO SCH (08:12)
[2018-07-16] MEDS: Calcium/Vitamin D 250/125 MG Tablet PO SCH ×3 (08:12→17:32)
[2018-07-16] MEDS: Enoxaparin Inj 40 MG/0.4 ML Syringe SQ SCH (12:05)
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
--- NOTE | 2018-07-17 07:01 | P.PNOP ---
Subjective Interval history: Patient resting comfortably. States his pain is well controlled. Physical Exam Vital signs: Vital Signs 07/16/18 08:00 07/16/18 12:00 07/16/18 12:05 Temperature 98.0 F 97.7 F Pulse Rate 75 80 Respiratory Rate 16 16 18 Blood Pressure 121/56 L 131/60 Pulse Oximetry 95 99 07/16/18 12:35 07/16/18 16:00 07/16/18 20:00 Temperature 98.9 F 98.1 F Pulse Rate 87 86 Respiratory Rate 18 18 20 Blood Pressure 117/56 L 132/63 Pulse Oximetry 97 98 07/17/18 00:00 Temperature 98.9 F Pulse Rate 81 Respiratory Rate 20 Blood Pressure 123/59 L Pulse Oximetry 97 Intake & Output 07/16/18 07/17/18 07/17/18 18:59 06:59 18:59 Intake Total 1480 / 1480 720 / 720 Output Total 600 / 600 450 / 450 Balance 880 / 880 270 / 270 Intake: IV 1000 / 1000 NS + KCl 20 mEq Inj 1,000 ML @ 1000 / 1000 100 mls/hr IV.CONT .Q10H [place] Rx #:[id number] NS Inj 250 ML @ 15 mls/hr IV. 0 / 0 SIG ONCE [place] Rx#:[id number] Oral 480 / 480 720 / 720 Output: Urine 600 / 600 450 / 450 Other: Date of Last Bowel Movement 07/12/18 07/12/18 # Bowel Movements 0 Narrative: Awake, alert, no acute distress Right lower extremity: Dressings in place without any significant drainage. Negative Homans. Patient is neurovascularly intact distally. 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 ok for primapore if minimal drainage. -Ice left hip for hematoma. will take time to resolve -CM for DC planning to SNF -DVT prophylaxis Once cleared by medical and bed placement is arranged we will plan on discharge to rehab -scripts on chart -f/u with Igor or FELY in 2 weeks [facility] Prescription Drug Monitoring Database has been queried and verified prior to prescribing the controlled substance. Acute pain exception. This patient has normal, predicted, physiological, and time limited response to an adverse mechanical stimulus associated with surgery, trauma, or acute illness as described in my notes. There is a lack of alternative treatment options other than to include the prescribed narcotic treatment for this condition.
[2018-07-17 08:04] VITALS: BP 145/72; PULSE 78; RESP 18; TEMP 98.3; O2SAT 98
[2018-07-17] MEDS: Calcium/Vitamin D 250/125 MG Tablet PO SCH (08:15)
[2018-07-17] MEDS: Loratadine 10 MG Tablet PO SCH (08:15)
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
== END 2018-07-17 11:46 ==
LOC: HSDI 05:49 → N06 14:24
PROVIDERS: ADMIT Orthopaedic Surgery Orthopaedic Trauma; ATTEND Orthopaedic Surgery Orthopaedic Trauma
PROC: ORIFFEM (2018-07-12 08:46)

== ENCOUNTER 2018-07-20 15:09 | Inpatient (IN) ==
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
[2018-07-20] MEDS ORDERED: Acetaminophen 325 MG Tablet PO PRN (17:31)
[2018-07-21] MEDS ORDERED: Famotidine PF Inj 20 MG/2 ML Vial ONE (06:20)
[2018-07-21] MEDS ORDERED: fentaNYL Citrate Inj 100 MCG/2 ML Ampul ONE ×2 (06:20)
[2018-07-21] MEDS ORDERED: Phenylephrine/NS 1000 MCG/10ML Syringe IV.PUSH ONE (07:20)
[2018-07-21] MEDS ORDERED: Succinylcholine Inj 100 MG/5 ML Syringe IV.PUSH ONE (07:20)
[2018-07-21] MEDS ORDERED: Lidocaine PF 1% Inj 5 ML Syringe OTHER ONE (07:20)
[2018-07-21] MEDS ORDERED: Metoprolol Tartrate 25 MG Tablet PO ONE (07:26)
[2018-07-21] MEDS ORDERED: Chlorhexidine Gluconate 2% 1 Pack (2 Cloths) TOPICAL ONE (07:26)
[2018-07-21] MEDS ORDERED: Post-op Orders (for Pharmacy) OTHER STA (07:48)
--- NOTE | 2018-07-21 07:54 | P.OP ---
- Preoperative Diagnosis (1) Hematoma of left hip Date of procedure: 07/21/18 Procedure: Irrigation and debridement of left hip hematoma Anesthesia: GETA Surgeon: Rene Manrique MD Chemical Pathologist: ESTELITA Campbell PA-C The surgical procedure was assisted by my physician melter assistant. My P.A. presence was necessary throughout this case for the manipulation and positioning of the surgical extremity. My P.A. was assisting me throughout the duration of this procedure. The skill set of a physician melter assistant was medically necessary to complete this procedure. During the surgical case the surgical appliances salesperson was working at the back table and the physician melter assistant was directly assisting me. Operation and Findings: Jin had a recent surgery for treatment of right femur nonunion with iliac crest bone graft from the left iliac crest. Patient has developed a large hematoma. Informed consent was obtained preoperatively and OpSite was marked. He is brought to operating room. Is given IV sedation and general anesthesia. Timeout procedure was performed. The left hip region was prepped with alcohol followed by Hibiclens and draped in usual sterile fashion. Antibiotics were held until cultures were obtained. Procedure began with opening of the 4 inch incision over the iliac crest. Sutures were removed. Hematoma was identified. The entire hematoma was evacuated. Curettes were now used to debride the cavity. Pulsatile lavage was used to thoroughly irrigate soft tissue and bone. No active bleeding was identified. At this point a drain was placed deep. A layered closure was now performed to reduce the space. Subcutaneous tissues closed with 3-0 PDS and skin was closed with gabriel. Sterile dressings were applied. Needle and sponge counts were correct. Patient was placed into an abdominal binder to apply compression. Patient was awakened and transferred to recovery room in stable condition.
[2018-07-21] MEDS ORDERED: ceFAZolin Inj 2,000 MG in Sodium Chlor 0.9% Inj 80 ML IV.SIG SCH (08:00)
[2018-07-21] MEDS ORDERED: Sodium Chlor 0.9% Inj 500 ML IV.SIG SCH (08:00)
[2018-07-21] MEDS ORDERED: *Promethazine Inj 25 MG/ML Vial PERIprocedural use ONLY ONE (08:27)
[2018-07-21] MEDS ORDERED: *morphine SULFATE 10 MG/ML PERIprocedure ONLY ONE ×2 (08:42→09:00)
[2018-07-21] MEDS: hydroCHLOROthiazide 25 MG Tablet PO SCH (09:37)
[2018-07-21] MEDS: Loratadine 10 MG Tablet PO SCH (09:37)
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
[2018-07-21] MEDS ORDERED: ceFAZolin 2 GM Premix Inj 2 GM/50 ML PIGGYBACK IV.SIG ONE (13:26)
[2018-07-21 15:07] LABS: Baso % (Auto) 0.2 % (0.0-2.0); Eos # (Auto) 0.1 th/mm3 (0.0-0.4); Eos % (Auto) 0.9 % (0.0-4.0); Lymph # (Auto) 0.5 th/mm3 (1.0-4.8); Lymph % (Auto) 3.8 % (9.0-44.0); Mean Corpuscular HGB Conc 33.4 % (32.0-36.0); Mean Corpuscular Hemoglobin 30.1 pg (27.0-34.0); Mean Corpuscular Volume 90.1 fL (80.0-100.0); Mean Platelet Volume 7.4 fL (7.0-11.0); Mono # (Auto) 0.6 th/mm3 (0.0-0.9); Mono % (Auto) 4.5 % (0.0-8.0); Neut % (Auto) 90.6 % (16.0-70.0); Platelet Count 294 th/mm3 (150-450); Red Cell Distribution Width 14.8 % (11.6-17.2); White Blood Count 14.3 th/mm3 (4.0-11.0)
[2018-07-21 15:15] LABS: Activated Partial Thrombo Time 24.5 sec (24.3-30.1); Prothrombin Time 10.6 sec (9.8-11.6)
[2018-07-21 15:34] LABS: Calcium 8.2 mg/dL (8.5-10.1); Carbon Dioxide 27.5 meq/L (21.0-32.0); Potassium 3.5 meq/L (3.5-5.1)
[2018-07-21] MEDS: ceFAZolin 2 GM Premix Inj 2 GM/50 ML PIGGYBACK IV.SIG SCH ×2 (16:12→23:14)
--- NOTE | 2018-07-22 07:10 | P.PNOP ---
Subjective Interval history: POD 1 s/p I&D left hip hematoma s/p revision IMN with ICBG right femur doing well. pain improved. no complaints Physical Exam Vital signs: Vital Signs 07/21/18 08:15 07/21/18 08:30 07/21/18 08:45 Temperature 98.3 F Pulse Rate 93 H 84 86 Respiratory Rate 20 21 22 Blood Pressure 123/74 142/76 H 146/79 H Pulse Oximetry 94 L 94 L 95 07/21/18 09:13 07/21/18 09:45 07/21/18 11:58 Temperature 98.8 F 98.3 F 98.7 F Pulse Rate 94 H 98 H 97 H Respiratory Rate 17 20 20 Blood Pressure 151/76 H 137/72 128/68 Pulse Oximetry 99 99 07/21/18 14:31 07/21/18 15:45 07/21/18 15:55 Temperature 98.7 F Pulse Rate 92 H Respiratory Rate 16 16 20 Blood Pressure 120/72 Pulse Oximetry 97 07/21/18 20:00 07/22/18 00:00 07/22/18 04:00 Temperature 100.4 F H 99.8 F H 98.7 F Pulse Rate 84 57 L 81 Respiratory Rate 18 18 18 Blood Pressure 132/63 126/62 124/67 Pulse Oximetry 100 98 96 Intake & Output 07/21/18 07/22/18 07/22/18 18:59 06:59 18:59 Intake Total 900 / 900 50 / 50 Output Total 998 / 998 1140 / 1140 Balance -98 / -98 -1090 / -1090 Weight 136.4 kg Intake: IV 100 / 100 50 / 50 Ancef 2 GM Premix Inj 2 gm In 100 / 100 50 / 50 50 ml @ 100 mls/hr IV.SIG Q8H [place] Rx#:[id number] Anesthesia Amount 800 / 800 Output: Urine 400 / 400 1100 / 1100 Estimated Blood Loss 500 / 500 Wound Drainage 98 / 98 40 / 40 # 1 Left Hip ERICH Drain 28 / 28 40 / 40 Left Hip 70 / 70 Narrative: Left hip: dressing clean and dry. +abdominal binder. +drain RLE: dressings clean and dry. intact. NVI Results - Labs CBC & Chem 7: 07/21/18 13:44 07/21/18 13:44 Laboratory Results - last 24 hr 10/07/21/18 07/21/18 13:44 13:44 13:44 WBC 14.3 H RBC 4.00 L Hgb 12.0 L Hct 36.0 L MCV 90.1 MCH 30.1 MCHC 33.4 RDW 14.8 Plt Count 294 MPV 7.4 Neut % (Auto) 90.6 H Lymph % (Auto) 3.8 L [place] % (Auto) 4.5 Eos % (Auto) 0.9 Baso % (Auto) 0.2 Neut # (Auto) 13.0 H Lymph # (Auto) 0.5 L [place] # (Auto) 0.6 Eos # (Auto) 0.1 Baso # (Auto) 0.0 WBC Differential . Differential Comment Auto diff final PT 10.6 INR 1.0 APTT 24.5 Sodium 134 L Potassium 3.5 Chloride 98 Carbon Dioxide 27.5 Anion Gap 9 BUN 14 Creatinine 0.94 Estimated GFR 81 L Random Glucose 82 Calcium 8.2 L Microbiology 07/21/18 07:52 Fluid - Other Fungal Smear - Final No fungal elements seen 07/21/18 07:52 Wound - Hip Fungal Smear - Final No fungal elements seen 07/21/18 07:52 Fluid - Other Gram Stain - Final 07/21/18 07:52 Wound - Hip Gram Stain - Final Assessment and Plan - Assessment and Plan 1) Right Femur IMN revision with ICBG -TTWB -ROM -daily dressing changes 2) I&D left hip hematoma - POD 1 -WBAT -daily dressing changes -maintain drain -will plan to remove drain on wednesday at [facility] -patient was admitted straight from [facility], therefore, ok to DC back to [place] today when arrangements made.
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
[2018-07-22] MEDS: ceFAZolin 2 GM Premix Inj 2 GM/50 ML PIGGYBACK IV.SIG SCH ×2 (10:18→16:24)
[2018-07-22] MEDS: hydroCHLOROthiazide 25 MG Tablet PO SCH (10:19)
[2018-07-22] MEDS: Rivaroxaban 10 MG Tablet PO SCH (10:19)
[2018-07-22] MEDS: Loratadine 10 MG Tablet PO SCH (10:26)
[2018-07-22 13:28] LABS: Baso % (Auto) 0.2 % (0.0-2.0); Eos # (Auto) 0.2 th/mm3 (0.0-0.4); Eos % (Auto) 3.1 % (0.0-4.0); Hematocrit 34.4 % (39.0-51.0); Hemoglobin 11.5 gm/dL (13.0-17.0); Lymph # (Auto) 0.4 th/mm3 (1.0-4.8); Lymph % (Auto) 5.7 % (9.0-44.0); Mean Corpuscular HGB Conc 33.6 % (32.0-36.0); Mean Corpuscular Hemoglobin 30.1 pg (27.0-34.0); Mean Corpuscular Volume 89.8 fL (80.0-100.0); Mean Platelet Volume 7.2 fL (7.0-11.0); Mono # (Auto) 0.4 th/mm3 (0.0-0.9); Mono % (Auto) 4.8 % (0.0-8.0); Neut # (Auto) 6.5 th/mm3 (1.8-7.7); Neut % (Auto) 86.2 % (16.0-70.0); Platelet Count 254 th/mm3 (150-450); Red Blood Count 3.83 mil/mm3 (4.50-5.90); Red Cell Distribution Width 14.8 % (11.6-17.2); White Blood Count 7.6 th/mm3 (4.0-11.0)
[2018-07-23] MEDS: ceFAZolin 2 GM Premix Inj 2 GM/50 ML PIGGYBACK IV.SIG SCH ×2 (00:20→09:54)
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
[2018-07-23 09:48] LABS: Baso % (Auto) 0.3 % (0.0-2.0); Eos # (Auto) 0.2 th/mm3 (0.0-0.4); Eos % (Auto) 4.1 % (0.0-4.0); Hematocrit 35.1 % (39.0-51.0); Hemoglobin 11.6 gm/dL (13.0-17.0); Lymph # (Auto) 0.4 th/mm3 (1.0-4.8); Lymph % (Auto) 6.7 % (9.0-44.0); Mean Corpuscular Hemoglobin 29.8 pg (27.0-34.0); Mean Corpuscular Volume 90.5 fL (80.0-100.0); Mean Platelet Volume 7.1 fL (7.0-11.0); Mono # (Auto) 0.2 th/mm3 (0.0-0.9); Mono % (Auto) 4.6 % (0.0-8.0); Neut # (Auto) 4.5 th/mm3 (1.8-7.7); Neut % (Auto) 84.3 % (16.0-70.0); Platelet Count 199 th/mm3 (150-450); Red Blood Count 3.88 mil/mm3 (4.50-5.90); Red Cell Distribution Width 14.4 % (11.6-17.2); White Blood Count 5.4 th/mm3 (4.0-11.0)
[2018-07-23] MEDS: Rivaroxaban 10 MG Tablet PO SCH (09:56)
[2018-07-23] MEDS: Loratadine 10 MG Tablet PO SCH (09:56)
[2018-07-23] MEDS: hydroCHLOROthiazide 25 MG Tablet PO SCH (09:56)
[2018-07-23 10:00] LABS: Anion Gap 6 meq/L (5-15); Blood Urea Nitrogen 14 mg/dL (7-18); Carbon Dioxide 30.4 meq/L (21.0-32.0); Chloride 98 meq/L (98-107); Glomerular Filtration Rate Greater Than 89 mL/min (>89); Glucose,Random 87 mg/dL (74-106); Potassium 3.1 meq/L (3.5-5.1); Sodium 134 meq/L (136-145)
[2018-07-23] MEDS ORDERED: Potassium Chloride 10 MEQ ER Capsule PO ONE (10:25)
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
[2018-07-23 12:25] VITALS: BP 132/73; PULSE 81; RESP 18; TEMP 98.9; O2SAT 95
[2018-07-23] MEDS ORDERED: levoFLOXacin 750 MG Tablet PO SCH (13:00)
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
== END 2018-07-23 14:45 ==
LOC: N05 15:52
PROVIDERS: ADMIT Hospitalist; ATTEND Hospitalist